=== PATIENT | male | born 1980 | race Caucasian/White ===

== ENCOUNTER 2017-07-03 07:21 | Day surgery (SDC) | payer OTHER ==
--- NOTE | 2017-06-26 09:46 | RADIOLOGY REPORT (SQ) ---
EXAM DESCRIPTION: CHEST PA/LATERAL COMPLETED DATE/TIME: 06/26/2017 9:34 am REASON FOR STUDY: PRE OP COMPARISON: None. EXAM PARAMETERS: NUMBER OF VIEWS: two views TECHNIQUE: Digital Frontal and Lateral radiographic views of the chest acquired. RADIATION DOSE: NA LIMITATIONS: none FINDINGS: LUNGS AND PLEURA: No opacities, masses or pneumothorax. No pleural effusion. MEDIASTINUM AND HILAR STRUCTURES: No masses or contour abnormalities. HEART AND VASCULAR STRUCTURES: Heart normal size. No evidence for failure. BONES: No acute findings. HARDWARE: None in the chest. OTHER: No other significant finding. IMPRESSION: NO SIGNIFICANT RADIOGRAPHIC FINDING IN THE CHEST. TECHNICAL DOCUMENTATION: JOB ID: [id number] [employer]- All Rights Reserved
[2017-06-26 10:03] LABS: APPEARANCE,URINE CLEAR; BILIRUBIN,URINE NEGATIVE (NEGATIVE); GLUCOSE, URINE NEGATIVE (NEGATIVE); KETONES,URINE NEGATIVE (NEGATIVE); LEUKOCYTE ESTERASE,URINE NEGATIVE (NEGATIVE); NITRITE,URINE NEGATIVE (NEGATIVE); PROTEIN,URINE NEGATIVE (NEGATIVE); URINE SPECIFIC GRAVITY 1.003; UROBILINOGEN,URINE NEGATIVE mg/dL (<2.0)
[2017-06-26 10:34] LABS: ABSOLUTE EOSINOPHILS # (AUTO) 0.1 10^3/uL (0.0-0.6); ABSOLUTE LYMPHOCYTES (AUTO) 1.5 10^3/uL (0.5-4.7); ABSOLUTE MONOCYTES (AUTO) 0.3 10^3/uL (0.1-1.4); ABSOLUTE NEUT (AUTO) 2.6 10^3/uL (1.7-8.2); BASOPHILS % (AUTO) 0.7 % (0-2); EOSINOPHILS % (AUTO) 1.8 % (0-6); LYMPHOCYTES % (AUTO) 32.9 % (13-45); MEAN CORPUSCULAR HGB CONC 35.7 g/dL (32.0-36.0); MEAN CORPUSCULAR VOLUME 90 fl (80-97); MONOCYTES % (AUTO) 7.1 % (3-13); RED BLOOD COUNT 4.69 10^6/uL (4.35-5.55); RED CELL DISTRIBUTION WIDTH 13.3 % (11.5-14.0); SEGMENTED NEUTROPHILS % (AUTO) 57.5 % (42-78); WHITE BLOOD COUNT 4.5 10^3/uL (4.0-10.5)
[2017-06-26 10:46] LABS: BACTERIA,URINE TRACE /HPF
[2017-06-26 11:00] LABS: ANION GAP 14 (5-19); BLOOD UREA NITROGEN 18 mg/dL (7-20); CALCIUM 9.9 mg/dL (8.4-10.2); CARBON DIOXIDE 29 mmol/L (22-30); CHLORIDE 99 mmol/L (98-107); CREATININE RESULT 1.26 mg/dL (0.52-1.25); GLUCOSE 87 mg/dL (75-110); POTASSIUM 4.3 mmol/L (3.6-5.0); SODIUM 141.5 mmol/L (137-145)
--- NOTE | 2017-06-26 11:50 | EKG REPORT ---
SEVERITY:- NORMAL ECG - SINUS RHYTHM : Confirmed by: Roby Cleary 26-Jun-2017 11:50:01
[~2017-07-03 07:21] MED LIST: CEFAZOLIN 2 GM/D5W RTU 2 GM/50 ML RTUPB IV PRN; LACTATED RINGERS 1000 ML IV PRN; LIDOCAINE 0.5% INJ-PF (5 MG/ML) 50 ML SDV SUBCUT PRN
[2017-07-03] MEDS ORDERED: BUPIVACAINE HCL 0.5 % INJ/PF 30 ML SDV ONE (08:37)
[2017-07-03] MEDS ORDERED: MIDAZOLAM 2 MG/2 ML INJ ONE (09:13)
[2017-07-03] MEDS ORDERED: ACETAMINOPHEN 100 ML IV ONE (09:13)
[2017-07-03] MEDS ORDERED: PROPOFOL INJ 200 MG/20 ML VIAL IV ONE (09:13)
[2017-07-03] MEDS ORDERED: HYDROMORPHONE HCL INJ/PF 2 MG/ML AMPULE ONE (09:13)
[2017-07-03] MEDS ORDERED: MEPERIDINE HCL/PF INJ 25 MG/1 ML DISP.SYRIN IV PRN (10:18)
[2017-07-03] MEDS ORDERED: ONDANSETRON HCL INJ/PF 4 MG/2 ML SDV IV PRN ×2 (10:18→12:01)
[2017-07-03] MEDS ORDERED: DIPHENHYDRAMINE HCL 50 MG/ML VIAL IV PRN (10:18)
[2017-07-03] MEDS ORDERED: PROMETHAZINE HCL INJ 25 MG/1 ML VIAL IV PRN ×2 (10:18)
[2017-07-03] MEDS ORDERED: FENTANYL CITRATE INJ/PF 100 MCG/2 ML AMPUL IV PRN ×3 (10:18)
[2017-07-03] MEDS ORDERED: HYDROCODONE/ACETAMINOPHEN 5-325 MG TABLET PO PRN (12:01)
[2017-07-03] MEDS ORDERED: HYDROMORPHONE HCL INJ/PF 2 MG/ML AMPULE IV PRN (12:01)
--- NOTE | 2017-07-03 12:05 | PDOC DISCHARGE SUMMARY ---
Discharge Summary (SDC) - Discharge Final Diagnosis: Right elbow arthroscopy with removal of loose body Date of Surgery: 07/03/17 Discharge Date: 07/03/17 Condition: Good Treatment or Instructions: Schedule Follow Up w/ Dr. Jovani Godoy @ [facility] for Surgery to be seen in 10-14 days or as scheduled [place]: [place]: [place]: Ice and elevate Keep splint clean/dry/intact. If your fingers become numb please unwrap the Zana wrap but leave the splint in place, if the sensation does not return within 30 minutes please return to the emergency department. May begin finger range of motion attempting to make full fist. Please use ibuprofen (Motrin or Advil) 600-800 mg every 8 hours as needed for pain or fever. You may also use acetaminophen (Tylenol) 1000 mg every 4-6 hours as needed for pain or fever. Please be aware that many medications contain acetaminophen, do not exceed a total of 1000 mg of acetaminophen every 6 hours. If ibuprofen and acetaminophen are not sufficient for your pain you may take the Percocet. Please be aware that the [place]/Percocet does contain Tylenol. Stool softener of choice when on pain medication. Prescriptions: Hydrocodone/Acetaminophen [[place] 5-325 mg Tablet] 1 tab PO Q6 PRN #40 tablet PRN Reason: Discharge Diet: As Tolerated Respiratory Treatments at Home: Deep Breathing/Coughing, Incentive Spirometer Discharge Activity: No Lifting Over 10 Pounds, No Lifting/Push/Pulling Report the Following to Your Physician Immediately: Fever over 101 Degrees, Unusual Bleeding, Redness, Swelling, Warmth, Increased Soreness
[2017-07-03] MEDS ORDERED: ONDANSETRON HCL INJ/PF 4 MG/2 ML SDV ONE ×2 (12:09→14:34)
--- NOTE | 2017-07-03 12:13 | Operative Report ---
Operative Report DATE OF SURGERY: 07/03/17 PREOPERATIVE DIAGNOSIS: Loose body right elbow OPERATION: 1. 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 Approximately 4 years ago he underwent arthroscopic debridement with open Outerbridge resection of the olecranon fossa. He states he has been doing well until recently began having discomfort especially with attempted extension of his elbow and triceps loading. At that point we discussed treatment options including operative versus nonoperative intervention. Risks and benefits were explained patient verbalized understanding consented for the procedure. Procedure In Detail: Patient was seen and evaluated in the preoperative holding area. The RIGHT upper extremity was initialized and marked. Patient received 2g of Ancef IV for bacterial prophylaxis. Patient was taken back to the operative room where transferred to the operative table and placed under general anesthesia. Once they were adequately anesthetized a nonsterile tourniquet was placed on the upper extremity the patient was placed in the lateral decubitus position and extremity placed in the western arm buck. Bilateral lower extremities and nonoperative left upper extremity was carefully padded. A surgical team debriefing was performed ensuring all instrumentation was available, the surgical procedure was discussed with possible concerns reviewed. The upper extremity was prepped with ChloraPrep and draped in a sterile fashion. A timeout was done identifying correct patient, procedure and extremity everyone in attendance agree with this and verbalized no concerns. The extremity was exsanguinated the tourniquet was inflated to 250 mmHg. The joint was insufflated with 30 cc of saline through the soft spot. The medial intramuscular septum and ulnar nerve were palpated. A proximal anteromedial portal was established and small stab incision was made 2 cm proximal to the medial epicondyle 1 cm anterior to the medial intramuscular septum. Blunt dissection was performed and arthroscope introduced into the elbow joint. Via triangulation a proximal anterolateral portal was established once again small stab incision was made blunt dissection was performed to the soft tissues and a cannula placed. Diagnostic arthroscopy demonstrated mild fraying of the trochlea and coronoid with no significant degenerative changes of the radial head. 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 The nonviable tissue of the ECRB was then debrided until the muscle belly of the ECRL was identified. During debridement special care was made to stay above the 50% hemisphere of the radial head to avoid iatrogenic injury to the lateral ulnar collateral ligament. With a ablator I carefully smooth the edges of the capsule and remaining ECRB tendon. Using a switching stick the arthroscope was placed into the anterior lateral portal. I then inspected the coronoid fossa the coronoid fossa was debrided from any soft tissue there was small metal fragments identified within the joint which were also removed. I then carefully elevated the capsule off the anterior humerus to improve patient' s postoperative extension. The elbow was placed in full flexion extension there is no evidence of coronoid impingement or limitation thus I turned my attention to the posterior compartment. A posterior lateral portal was established and arthroscope introduced. Under direct visualization the olecranon fossa and Outerbridge osteotomy was identified. I then strangulated and established a posterior central portal. The previous Outerbridge region was carefully debrided there was small metal fragments which were removed. There was a 5 mm loose body adhered to the underlying capsular tissue which was successfully excised. The elbow was ranged and the was evidence of impingement of the olecranon tip along the olecranon fossa posteriorly thus with a osteotome a 5 mm portion of the olecranon tip was osteotomized and removed. The shaver was then utilized to smooth the edges along with the ablator. Patient had full elbow range of motion there is no evidence of remaining loose body or crepitation. Through the small incision at the posterior central portal I palpated the triceps and no defect was appreciated. Arthroscopically the triceps was also inspected no evidence of full-thickness tear was visualized. Surgical incisions were closed with interrupted 3-0 nylon suture. 30 cc of 0.5 % Marcaine with epinephrine was injected for postoperative pain control. 4 x 4' s and ABD were placed and patient was immobilized in a posterior plaster splint with the elbow at 70 of flexion. Sponge counts, instrument counts, needle counts counts were correct. Patient was then awoken from anesthesia. Transferred from the operating room table to the operating room stretcher. There was no intraoperative complications patient tolerated procedure well stable to PACU. Sponge counts, instrument counts, needle counts counts were correct. Patient was then awoken from anesthesia. Transferred from the operating room table to the operating room stretcher. There was no intraoperative complications patient tolerated procedure well stable to PACU. Postoperative plan: Patient will follow-up the office in 2 weeks at which point we will transition him to a elbow brace and he will begin range of motion and occupational therapy.
[2017-07-03] MEDS ORDERED: ONDANSETRON 4 MG TAB.RAPDIS ONE (13:55)
[2017-07-03 14:24] VITALS: BP 127/69
[2017-07-03] MEDS ORDERED: GLYCOPYRROLATE INJ 0.4 MG/2 ML VIAL ONE (14:34)
[2017-07-03] MEDS ORDERED: LIDOCAINE 2% INJ-PF (20 MG/ML) 2 ML AMPUL ONE (14:34)
[2017-07-03] MEDS ORDERED: METOCLOPRAMIDE HCL INJ/PF 10 MG/2 ML SDV ONE (14:34)
[2017-07-03] MEDS ORDERED: SUCCINYLCHOLINE CHLORIDE INJ 200 MG/10 ML VIAL ONE (14:34)
[2017-07-03] MEDS ORDERED: DEXAMETHASONE SOD PHOSPHATE INJ 4 MG/1 ML VIAL ONE (14:34)
[2017-07-03] MEDS ORDERED: KETOROLAC TROMETHAMINE 60 MG/2 ML SDV ONE (14:34)
== END 2017-07-03 14:30 | disposition home or self-care (01) ==
LOC: OROUT 07:21
PROVIDERS: ATTEND Orthopaedic Surgery
PROC: 0RCL4ZZ Extirpation of Matter from Right Elbow Joint, Percutaneous Endoscopic Approach (ICD-10-PCS; 2017-07-03)
PROC: 0RBL4ZZ Excision of Right Elbow Joint, Percutaneous Endoscopic Approach (ICD-10-PCS; principal; 2017-07-03 09:30)
DX: M24.021 Loose body in right elbow (principal); M12.821 Other specific arthropathies, not elsewhere classified, right elbow; M77.8 Other enthesopathies, not elsewhere classified; I10 Essential (primary) hypertension; K21.9 Gastro-esophageal reflux disease without esophagitis; Z79.899 Other long term (current) drug therapy; Z88.5 Allergy status to narcotic agent
CPT/HCPCS: 93005; 36415; 85025; 80048; 81001; 71020; 93010; 29838; 29834; J2250; J1100; J1885; S0119; J2765; J1170; J0330; J2405; J2704; J0690; J0131; J3490; 1740